=== PATIENT | male | born 1940 | race Caucasian/White ===

== ENCOUNTER 2018-04-28 10:39 | Outpatient (CLI) | payer MEDICARE, SELFPAY ==
[2018-04-28 13:35] LABS: Anion Gap 6.2 mmol/L (3-11); BUN 19 mg/dL (7-18); CO2 30.8 mmol/L (21.0-32.0); CREATININE 1.07 mg/dL (0.70-1.30); Chloride 104 mmol/L (98-107); Glucose 91 mg/dL (70-100); Potassium 4.4 mmol/L (3.5-5.1); Sodium 141 mmol/L (136-145)
== END 2018-04-28 10:59 ==
PROVIDERS: PCP Family Medicine; Visit Provider Family Medicine
DX: I10 Essential (primary) hypertension (principal)
CPT/HCPCS: 36415; 80048

== ENCOUNTER 2018-05-04 00:54 | Outpatient (CLI) | payer MEDICARE, SELFPAY ==
--- NOTE | 2018-05-04 08:44 | DI.CT_ITS ---
SYMPTOM/DIAGNOSIS: LOSS OF CONSCIOUSNESS, FELL, SYNCOPE, R55 HEAD CT: There is no evidence of an intra/extra-axial hemorrhage or edema. The dias white matter differentiation is intact. The ventricles are normal. There is no evidence of a skull fracture. The paranasal sinuses are normal. There is no evidence of a mastoid effusion. SUMMARY: No evidence of an acute intracranial abnormality. There is age appropriate mild atrophy, nil else.
[2018-05-04] MEDS: Omnipaque 350 MG/ML 100 ML BTL IJ (09:21)
== END 2018-05-04 01:14 ==
PROVIDERS: PCP Family Medicine; Visit Provider Family Medicine
DX: R55 Syncope and collapse (principal); G31.1 Senile degeneration of brain, not elsewhere classified
CPT/HCPCS: 70470; J3490